=== PATIENT | female | born 1985 ===

== ENCOUNTER 2016-12-28 16:35 | Emergency (ER) | payer OTHER ==
[~2016-12-28] VITALS: Ht 172.7 cm; Wt 113.6 kg
[2016-12-28 16:40] VITALS: BP 160/102; PULSE 100; RESP 17; O2SAT 99
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
--- NOTE | 2016-12-28 17:58 | DRSVH ---
PROCEDURE: CT BRAIN WITHOUT CONTRAST ([id number]) INDICATIONS: fall on face 2 days ago, continued pain on left si TECHNIQUE: Noncontrast 4.5 mm thick angled axial sections acquired from the foramen magnum to the vertex, with c oronal reformats. COMPARISON: None. FINDINGS: Image quality: Excellent. CSF spaces: Basal cisterns are patent. No extra-axial fluid collections. Ventricles are normal in size and shape. Brain: No midline shift. No intracranial masses or hemorrhage. Kam-white matter interface is norm al. Skull and face: Calvarium and visualized facial bones are intact, without suspicious lesions. Sinuses: Visualized sinuses and mastoids are clear. IMPRESSION: No acute intracranial process Dictated by: Sami Head M.D. on 12/28/2016 at 17:55 Approved by: Sami Head M.D. on 12/28/2016 at 17:56
--- NOTE | 2016-12-28 18:03 | DRSVH ---
PROCEDURE: CT FACE WITHOUT CONTRAST ([id number]) INDICATIONS: fall on face 2 days ago, continued pain on left si TECHNIQUE: Noncontrast 1.5 mm thick axial images acquired from the mandible through the frontal sinuses, with co saul and sagittal reformatting. For radiation dose reduction, the following was used: automated ex posure control. COMPARISON: None. FINDINGS: Image quality: Excellent. Bones and teeth: Orbital mata are intact. Sinus mata show no fracture or deformity. Minimally dis placed left nasal bone fracture. Visualized portions of the mandible demonstrate no fractures or subl uxation. Zygomatic arches are intact. Pterygoid plates are intact. Visualized portions of the skul l base and auditory canals are intact. Sinuses: Minimal right maxillary sinus mucosal thickening otherwise paranasal sinuses are aerated, wi thout fluid levels, mucosal thickening, or mucoceles. Mastoid air cells are aerated. Soft tissues: No edema, masses, or fluid collections. No enlarged lymph nodes. No soft tissue lace rations or debris. Vascular: Visualized vascular structures appear normal in the absence of contrast. Bony vascular fo ramina and canals are intact. IMPRESSION: Minimally displaced left nasal bone fracture Dictated by: Sami Head M.D. on 12/28/2016 at 17:57 Approved by: Sami Head M.D. on 12/28/2016 at 18:01
[2016-12-28 18:59] VITALS: BP 146/97; PULSE 90; RESP 20; O2SAT 97
== END 2016-12-28 19:00 | disposition home or self-care (01) ==
LOC: SED 16:35
DX: S02.2XXA Fracture of nasal bones, initial encounter for closed fracture (principal); W01.198A Fall on same level from slipping, tripping and stumbling with subsequent striking against other object, initial encounter; Y93.89 Activity, other specified; Y92.009 Unspecified place in unspecified non-institutional (private) residence as the place of occurrence of the external cause; Y99.8 Other external cause status; Z87.891 Personal history of nicotine dependence